=== PATIENT | female | born 1990 | race Caucasian/White ===

== ENCOUNTER 2020-02-19 14:02 | Emergency (ER) | payer OTHER, SELFPAY ==
[2020-02-19 14:08] VITALS: BMI 39.6
[2020-02-19 14:12] VITALS: BP 153/80; PULSE 74; RESP 16; TEMP 37.2; O2SAT 98
--- NOTE | 2020-02-19 14:18 | ED_ITS ---
HPI - Abdominal Pain General: Chief Complaint: Abdominal Pain Stated Complaint: abd pain Time Seen by Provider: 02/19/20 14:18 Source: patient Mode of arrival: ambulatory Limitations: no limitations History of Present Illness: HPI narrative: Patient comes in today with complaints of left flank pain for the last 3 days. Patient denies any injury or straining to move any objects. Patient denies any increase activity. Patient denies any fever nausea or vomiting. Patient appears well. Patient appears in mild pain. MD elicited complaint: flank pain Associated Symptoms: Reports dysuria and nausea Related Data: Date of Last Menstrual Period: 02/13/20 Review of Systems General: Reports: 10 or more systems reviewed and unremarkable except in HPI and below GI: Reports: abdominal pain (Left flank pain) and nausea : Reports: painful urination PFSH ED PFSH: Social History Smoking and tobacco status: never smoked Female Reproductive History: Date of last menstrual period: 02/13/20 Physical Exam Const: COMMON NORMALS: no apparent distress and oriented x3 GENERAL APPEARANCE: cooperative HENMT: COMMON NORMALS: normocephalic, TM's normal bilaterally and external nose normal HEAD & SCALP: normal to inspection and normocephalic NOSE: external nose normal TYMPANIC MEMBRANE: TM's normal bilaterally MOUTH: oral and palatal mucosa normal THROAT: posterior oropharynx normal Eye: GENERAL EYE: normal appearance of both eyes Neck/C-Spine: COMMON NORMALS: full ROM Lymph: LYMPHATIC: no lymphadenopathy noted Chest: COMMONS NORMALS: inspection of chest normal Resp: COMMON NORMALS: normal respiratory effort EFFORT & INSPECTION: Yes able to speak in complete sentences Cardio: COMMON NORMALS: regular rate and regular rhythm RATE: regular rate RHYTHM: regular rhythm GI: PALPATION: Yes tender (Tenderness left upper quadrant on palpation.) : COMMON NORMALS: Yes no CVA tenderness BLADDER/KIDNEY EXAM: Yes no CVA tenderness Back/Pelvis: COMMON NORMALS: no CVA tenderness and thoracic and lumbar spine normal to inspection Extremity: COMMON NORMALS: normal to inspection Neuro: COMMON NORMALS: oriented x3 and moves all extremities Psych: COMMON NORMALS: mental status grossly normal and cooperative Skin: COMMON NORMALS: no rashes or lesions noted GENERAL SKIN EXAM: no rashes or lesions noted Course Vital Signs: Vital signs: Vital Signs Temperature 99.0 F 02/19/20 14:12 Pulse Rate 61 02/19/20 15:13 Respiratory Rate 16 02/19/20 15:13 Blood Pressure 128/76 02/19/20 15:13 Pulse Oximetry 92 02/19/20 15:13 MDM - Abdominal Pain MDM Narrative: Medical decision making narrative: Patient comes into the ER for persistent left upper quadrant abdominal pain. On exam patient has no CVA tenderness. Patient has palpable tenderness to the left upper quadrant deep. Abdomen is soft otherwise. Bowel sounds are normal. Skin is warm and dry. Vital signs are normal except for some mild elevation of blood pressure. Differential diagnosis includes gastritis, constipation, renal calculi, pyelonephritis. CBC and CMP were normal. Urinalysis noted some white and red blood cells in the urine. CT scan of the abdomen and pelvis noted some hydronephrosis on the left ureter with renal calculi bilateral kidneys. Reviewed with patient with recommendations for treatment for renal calculi. Suspect recently passed renal stone we will treat empirically for secondary infection due to the white blood cells in the urine. We will arrange with case management for referral to Dr. Carter for further evaluation and treatment. Patient reports understanding agreed to plan. Lab Data: Labs: Lab Results 02/19/20 02/19/20 02/19/20 Range/Units 14:20 14:30 14:30 WBC 8.7 (4.0-10.0) 10^3/ uL RBC 4.84 (4.1-5.3) 10^6/u L Hgb 14.1 (11.5-15.3) g/dL Hct 44.4 (37.0-47.0) % MCV 91.7 (81-99) fL MCH 29.1 (28.0-34.0) pg MCHC 31.8 (30.0-36.0) g/dL RDW 12.3 (12.1-15.1) % Plt Count 290 (130-400) 10^3/c mm MPV 10.7 H (7.4-10.4) fL Neut % (Auto) 61.6 % Lymph % (Auto) 26.4 % [place] % (Auto) 6.5 % Eos % (Auto) 5.0 % Baso % (Auto) 0.3 % Neut # (Auto) 5.4 (1.8-7.7) 10^3/u L Lymph # (Auto) 2.3 (0.8-4.8) 10^3/u L [place] # (Auto) 0.6 (0.2-0.9) 10^3/u L Eos # (Auto) 0.4 (0.0-0.8) 10^3/u L Baso # (Auto) 0.0 (0.0-0.1) 10^3/u L Nucleated RBC % (a uto) 0 % Nucleated RBCs # 0.0 /100WBC Sodium 143 (136-145) mmol/L Potassium 4.2 (3.5-5.1) mmol/L Chloride 104 (98-107) mmol/L Carbon Dioxide 27 (22-29) mmol/L Anion Gap 16.2 (5-19) BUN 14 (6-20) mg/dL Creatinine 0.8 (0.5-0.9) mg/dL GFR Calculation 83.7 L (90-130) mL/min Glucose 87 (65-115) mg/dL Calculated Osmolal ity 292 (285-295) mOsm/k g Calcium 9.8 (8.5-10.5) mg/dL Total Bilirubin 0.3 (0.15-1.2) mg/dL AST 20 (0-32) U/L ALT 23 (0-33) U/L Alkaline Phosphata se 75 (35-105) IU/L Total Protein 7.9 (6.6-8.7) g/dL Albumin 4.8 (3.5-5.2) g/dL Globulin 3.1 (1.3-4.6) g/dL HCG, Qual (Negative) Urine Color Yellow (Yellow) Urine Appearance Clear (CLEAR) Urine pH 6.5 (5-7) Ur Specific Gravit y 1.015 (1.005-1.030) Urine Protein Neg (Negative) Urine Glucose (UA) Norm (Normal) Urine Ketones Negative (Negative) Urine Blood 2+ H (Negative) Urine Nitrate Negative (Negative) Urine Bilirubin Neg (NEGATIVE) Urine Urobilinogen Norm (Negative) mg/dL Ur Leukocyte Michelle ase Negative (Negative) Urine RBC 10-15 H (0-2) /hpf Urine WBC 15-25 H (0-5) /hpf Ur Squamous Epith Cells 5-10 H (0-5) Urine Bacteria 1+ H (NONE) Urine Mucus Trace 02/19/20 Range/Units 14:30 WBC (4.0-10.0) 10^3/ uL RBC (4.1-5.3) 10^6/u L Hgb (11.5-15.3) g/dL Hct (37.0-47.0) % MCV (81-99) fL MCH (28.0-34.0) pg MCHC (30.0-36.0) g/dL RDW (12.1-15.1) % Plt Count (130-400) 10^3/c mm MPV (7.4-10.4) fL Neut % (Auto) % Lymph % (Auto) % [place] % (Auto) % Eos % (Auto) % Baso % (Auto) % Neut # (Auto) (1.8-7.7) 10^3/u L Lymph # (Auto) (0.8-4.8) 10^3/u L [place] # (Auto) (0.2-0.9) 10^3/u L Eos # (Auto) (0.0-0.8) 10^3/u L Baso # (Auto) (0.0-0.1) 10^3/u L Nucleated RBC % (a uto) % Nucleated RBCs # /100WBC Sodium (136-145) mmol/L Potassium (3.5-5.1) mmol/L Chloride (98-107) mmol/L Carbon Dioxide (22-29) mmol/L Anion Gap (5-19) BUN (6-20) mg/dL Creatinine (0.5-0.9) mg/dL GFR Calculation (90-130) mL/min Glucose (65-115) mg/dL Calculated Osmolal ity (285-295) mOsm/k g Calcium (8.5-10.5) mg/dL Total Bilirubin (0.15-1.2) mg/dL AST (0-32) U/L ALT (0-33) U/L Alkaline Phosphata se (35-105) IU/L Total Protein (6.6-8.7) g/dL Albumin (3.5-5.2) g/dL Globulin (1.3-4.6) g/dL HCG, Qual Negative (Negative) Urine Color (Yellow) Urine Appearance (CLEAR) Urine pH (5-7) Ur Specific Gravit y (1.005-1.030) Urine Protein (Negative) Urine Glucose (UA) (Normal) Urine Ketones (Negative) Urine Blood (Negative) Urine Nitrate (Negative) Urine Bilirubin (NEGATIVE) Urine Urobilinogen (Negative) mg/dL Ur Leukocyte Michelle ase (Negative) Urine RBC (0-2) /hpf Urine WBC (0-5) /hpf Ur Squamous Epith Cells (0-5) Urine Bacteria (NONE) Urine Mucus Discharge Plan Discharge Patient Disposition: Home, Self-Care Clinical Impression: Calculus, renal UTI (urinary tract infection) Qualifiers: Urinary tract infection type: site unspecified Hematuria presence: with hematuria Qualified Code(s): N39.0 - Urinary tract infection, site not specified Condition: Stable Prescriptions: New cephalexin 500 mg capsule 500 mg PO BID 7 Days Qty: 14 RF: 0 hydrocodone-acetaminophen 5-325 mg tablet 1 tab PO Q6H PRN (Reason: pain) Qty: 7 RF: 0 ondansetron HCl 4 mg tablet 4 mg PO Q8H PRN (Reason: nausea and vomiting) Qty: 7 RF: 0 No Action Zyrtec 10 mg Capsule 10 mg PO DAILY RF: 0 Discharge Orders: Discharge Order (Routine); Ordered 02/19/20 Ordered By: Charlie Mckenna Referrals: Caleb Joseph MD [Primary Care Provider] - Discharge Diet: Usual diet Discharge Activity: Increase activity as tolerated Patient Instructions: Renal Colic (ED) Activity Restrictions/Additional Instructions: Drink plenty of water. Take antibiotics as directed. Use acetaminophen or ibuprofen as needed for control of pain. Use hydrocodone for severe pain. Follow-up with urology for further evaluation and treatment. Return to the ER for high fever or uncontrolled symptoms. Coding Level of Care Code ED Teletypewriter Operator for Dkg Fwd Exam Comprehensive
--- NOTE | 2020-02-19 14:25 | CTR_ITS ---
PROCEDURE INFORMATION: Exam: CT Abdomen And Pelvis Without Contrast Exam date and time: 02/19/2020 2:59 PM Age: 29 years old Clinical indication: Abdominal pain; Flank; Left; Additional info: Left flank pain, TECHNIQUE: Imaging protocol: Computed tomography of the abdomen and pelvis without contrast. Radiation optimization: All CT scans at this facility use at least one of these dose optimization techniques: automated exposure control; mA and/or kV adjustment per patient size (includes targeted exams where dose is matched to clinical indication); or iterative reconstruction. COMPARISON: US OB >14 Weeks [id number] 07/23/2017 2:49 PM RADIATION DOSE METRICS: Total DLP: 2042.6 mGy-cm FINDINGS: Liver: Normal. No mass. Gallbladder and bile ducts: The gallbladder is surgically absent, with metallic clips in the gallbladder fossa. Pancreas: Normal. No ductal dilation. Spleen: Normal. No splenomegaly. Adrenals: Normal. No mass. Kidneys and ureters: The left kidney shows mild pelviectasis and borderline abdominal ureterectasis with mild renal pelvic an ureteral wall thickening. Left renal calculi (3), the largest in the lateral mid kidney measuring 3.3 mm. Right renal calculi (2), the largest in the posterior mid kidney measuring 2.2 mm. Stomach and bowel: Unremarkable. No obstruction. No mucosal thickening. Appendix: The vermiform appendix is normal. Intraperitoneal space: Unremarkable. No free air. No significant fluid collection. Vasculature: Unremarkable. No abdominal aortic aneurysm. Lymph nodes: No enlarged lymph nodes. Bladder: Unremarkable as visualized. Reproductive: Unremarkable as visualized. Bones/joints: Unremarkable. No acute fracture. Soft tissues: Unremarkable. CT/CT kidney stone [id number] IMPRESSION: 1. Mild left hydronephrosis, borderline left hydroureter. No obstructing calculus identified. Differential diagnosis includes recently passed calculi, and non-opaque obstructing material (hemorrhage, purulence, nonopaque calculus). Clinical correlation (including urinalysis) is recommended. 2. Bilateral renal calyceal lithiasis. 3. Prior cholecystectomy. Radiation Dose CTDIVOL = (mGy): DLP = 2042.6 (mGy-cm)
[2020-02-19 14:46] LABS: Basophils % 0.3 %; Eosinophils # 0.4 10^3/uL (0.0-0.8); Hematocrit 44.4 % (37.0-47.0); Hemoglobin 14.1 g/dL (11.5-15.3); Lymphocytes # 2.3 10^3/uL (0.8-4.8); Lymphocytes % 26.4 %; Mean Corpuscular HGB Conc 31.8 g/dL (30.0-36.0); Mean Corpuscular Hemoglobin 29.1 pg (28.0-34.0); Mean Corpuscular Volume 91.7 fL (81-99); Mean Platelet Volume 10.7 fL (7.4-10.4); Monocytes # 0.6 10^3/uL (0.2-0.9); Monocytes % 6.5 %; Neutrophils # 5.4 10^3/uL (1.8-7.7); Neutrophils % 61.6 %; Nucleated Red Blood Cells % 0 %; Platelet Count 290 10^3/cmm (130-400); Red Blood Count 4.84 10^6/uL (4.1-5.3); Red Cell Distribution Width 12.3 % (12.1-15.1); White Blood Count 8.7 10^3/uL (4.0-10.0)
[2020-02-19] MEDS: sodium chloride 0.9% 500 ML 999 ML IV (14:51)
[2020-02-19] MEDS: ondansetron 2 mg/ML SDV 2 mL 4 MG IVP (14:51)
[2020-02-19] MEDS: ketorolac 30 mg/mL INJ 15 MG IVP (14:51)
[2020-02-19 14:54] LABS: HCG, Serum Qual Negative (Negative)
[2020-02-19 14:55] VITALS: BP 125/69; PULSE 56; RESP 16; O2SAT 96
[2020-02-19 15:03] LABS: Alanine Aminotransferase 23 U/L (0-33); Albumin Level 4.8 g/dL (3.5-5.2); Alkaline Phosphatase 75 IU/L (35-105); Anion Gap 16.2 (5-19); Aspartate Amino Transferase 20 U/L (0-32); Blood Urea Nitrogen 14 mg/dL (6-20); Calcium 9.8 mg/dL (8.5-10.5); Carbon Dioxide 27 mmol/L (22-29); Chloride 104 mmol/L (98-107); Creatinine Clr Calc Pharmacy 107.4187; Globulin 3.1 g/dL (1.3-4.6); Glomerular Filtration Rate 83.7 mL/min (90-130); Glucose 87 mg/dL (65-115); Osmolality Calculated 292 mOsm/kg (285-295); Potassium 4.2 mmol/L (3.5-5.1); Sodium 143 mmol/L (136-145); Total Bilirubin 0.3 mg/dL (0.15-1.2); Total Protein 7.9 g/dL (6.6-8.7)
[2020-02-19 15:13] VITALS: BP 128/76; PULSE 61; RESP 16; O2SAT 92
[2020-02-19 15:13] LABS: Add Urine Microscopic? YES; Bilirubin Urine Neg (NEGATIVE); Blood Urine 2+ (Negative); Glucose Urine UA Norm (Normal); Ketones Urine Negative (Negative); Leukocyte Esterase Urine Negative (Negative); Nitrate Urine Negative (Negative); Protein Urine Neg (Negative); Specific Gravity, Urine 1.015 (1.005-1.030); Urine Appearance Clear (CLEAR); Urine Color Yellow (Yellow); Urobilinogen Urine Norm (Negative); WBC Urine 15-25 /hpf (0-5); pH Urine 6.5 (5-7)
[2020-02-19 15:14] LABS: Add Urine Culture? Yes; Bacteria Urine 1+; Mucus Urine TRACE
[2020-02-19 16:29] VITALS: BP 121/70; PULSE 59; RESP 16; O2SAT 97
--- NOTE | 2020-02-21 12:06 | DCPLANNER ---
wildlife refuge manager had message to schedule a follow up appointment for patient with Dr. Carter. wildlife refuge manager called the office of Dr. Carter, spoke with Grisel, gave clinic patients information. wildlife refuge manager was told that patients information would be printed and given to Jaylene for review. Clinic will call patient with appointment information. wildlife refuge manager will call for appointment information.
--- NOTE | 2020-02-22 13:55 | DCPLANNER ---
Patient has a follow up appointment scheduled for Thursday, March 23, [address] at 3:[address] Carter. Clinic will call patient with appointment information.
--- NOTE | 2020-03-14 08:02 | DCPLANNER ---
Patient attended appointment scheduled for 02.22.[address] Carter.
== END 2020-02-19 16:25 | disposition home or self-care (01) ==
PROVIDERS: Emergency Provider Nurse Practitioner Family; Family Provider Family Medicine; PCP Family Medicine
DX: N20.0 Calculus of kidney (principal); N39.0 Urinary tract infection, site not specified; R31.9 Hematuria, unspecified
CPT/HCPCS: 12345; 36415; 74176; 80053; 81001; 84703; 85025; 87077; 87086; 87186; 96374; 96375; 99282; 99284; A9270; J1885; J2405; J7040

== ENCOUNTER 2020-02-22 13:48 | Outpatient (CLI) | payer OTHER, SELFPAY ==
--- NOTE | 2020-02-22 14:00 | XR_ITS ---
WS: [id number] XR KUB [id number] REASON FOR EXAM: RENAL CALCULI FINDINGS: Calcified densities are seen in the left kidney the largest measures 2.61 mm. There is no obstructive pattern seen. There is nonspecific gas and fecal stasis. The ureters and bladder appear to be normal. XR/XR KUB [id number] IMPRESSION: Left renal calculus.
== END 2020-02-22 13:49 | disposition home or self-care (01) ==
LOC: RAD 13:49
PROVIDERS: PCP Family Medicine; Visit Provider Urology
DX: N20.0 Calculus of kidney (principal); N39.0 Urinary tract infection, site not specified; R31.9 Hematuria, unspecified
CPT/HCPCS: 74018; 81001

== ENCOUNTER 2020-03-19 13:22 | Outpatient (CLI) | payer OTHER, SELFPAY ==
--- NOTE | 2020-03-19 13:00 | XR_ITS ---
WS: [id number] XR KUB [id number] REASON FOR EXAM: abd pain FINDINGS: Scattered gas and fecal stasis is noted. Small stones are again seen in the lower pole of t he left kidney. These are unchanged since February 22, 2020. There is no stones in the region of the ureter bladder. XR/XR KUB [id number] IMPRESSION: Small stones identified again in the left kidney.
== END 2020-03-19 13:23 | disposition home or self-care (01) ==
LOC: RAD 13:25
PROVIDERS: PCP Family Medicine; Visit Provider Nurse Practitioner Family
DX: R10.9 Unspecified abdominal pain (principal); N20.0 Calculus of kidney
CPT/HCPCS: 74018; 81001

== ENCOUNTER → 2020-04-04 09:14 | Outpatient (BNVA) | payer OTHER, SELFPAY | PROVIDERS: PCP Family Medicine; Visit Provider Urology | DX: N39.0 Urinary tract infection, site not specified (principal); R10.812 Left upper quadrant abdominal tenderness | CPT/HCPCS: 81001 ==

== ENCOUNTER → 2022-10-23 15:22 | Outpatient (BNVA) | payer OTHER, SELFPAY | PROVIDERS: PCP Family Medicine; Visit Provider Family Medicine | DX: E03.9 Hypothyroidism, unspecified (principal); N39.0 Urinary tract infection, site not specified; R10.812 Left upper quadrant abdominal tenderness | CPT/HCPCS: 84436; 84443 ==

== ENCOUNTER → 2022-12-26 09:32 | Outpatient (BNVA) | payer OTHER, SELFPAY | PROVIDERS: PCP Family Medicine; Visit Provider Family Medicine | DX: Z13.220 Encounter for screening for lipoid disorders (principal); E03.9 Hypothyroidism, unspecified; Z51.81 Encounter for therapeutic drug level monitoring | CPT/HCPCS: 80053; 80061; 84439; 84443; 85025 ==

== ENCOUNTER → 2023-01-02 08:30 | Outpatient (BNVA) | payer OTHER, SELFPAY | PROVIDERS: PCP Family Medicine; Visit Provider Podiatrist Foot & Ankle Surgery | DX: M76.62 Achilles tendinitis, left leg (principal); M72.2 Plantar fascial fibromatosis; M24.572 Contracture, left ankle | CPT/HCPCS: 73630 ==

== ENCOUNTER 2023-01-26 15:43 | Outpatient (CLI) | payer OTHER, SELFPAY | END 2023-01-26 15:44 | disposition home or self-care (01) | LOC: SPT 15:43 | PROVIDERS: PCP Family Medicine; Visit Provider Podiatrist Foot & Ankle Surgery | DX: Z46.89 Encounter for fitting and adjustment of other specified devices (principal); M72.2 Plantar fascial fibromatosis | CPT/HCPCS: 97760; L4397 ==

== ENCOUNTER → 2023-02-09 15:46 | Outpatient (BNVA) | payer OTHER, SELFPAY | PROVIDERS: PCP Family Medicine; Visit Provider Family Medicine | DX: E03.9 Hypothyroidism, unspecified (principal); L50.9 Urticaria, unspecified; R63.5 Abnormal weight gain | CPT/HCPCS: 82533; 84439; 84443; 86376 ==

== ENCOUNTER → 2023-02-25 08:28 | Outpatient (BNVA) | payer OTHER, SELFPAY | PROVIDERS: PCP Family Medicine; Visit Provider Family Medicine | DX: E03.9 Hypothyroidism, unspecified (principal) | CPT/HCPCS: 82533 ==

== ENCOUNTER → 2023-04-06 13:26 | Outpatient (BNVA) | payer OTHER, SELFPAY | PROVIDERS: PCP Family Medicine; Visit Provider Internal Medicine | DX: E03.9 Hypothyroidism, unspecified (principal); L50.9 Urticaria, unspecified; R63.5 Abnormal weight gain; Z79.890 Hormone replacement therapy; Z68.41 Body mass index [BMI] 40.0-44.9, adult | CPT/HCPCS: 99214 ==

== ENCOUNTER → 2023-05-15 12:33 | Outpatient (BNVA) | payer OTHER, SELFPAY | PROVIDERS: PCP Family Medicine; Visit Provider Family Medicine | DX: E03.9 Hypothyroidism, unspecified (principal) | CPT/HCPCS: 84439; 84443 ==

== ENCOUNTER → 2023-05-19 10:00 | Outpatient (BNVA) | payer OTHER, SELFPAY | PROVIDERS: PCP Family Medicine; Visit Provider Nurse Practitioner Women's Health | DX: Z01.419 Encounter for gynecological examination (general) (routine) without abnormal findings (principal) | CPT/HCPCS: 87624 ==

== ENCOUNTER → 2023-05-28 14:56 | Outpatient (BNVA) | payer OTHER, SELFPAY | PROVIDERS: PCP Family Medicine; Visit Provider Nurse Practitioner Women's Health | DX: N92.0 Excessive and frequent menstruation with regular cycle (principal) | CPT/HCPCS: 76830 ==

== ENCOUNTER → 2023-06-15 13:23 | Outpatient (BNVA) | payer OTHER, SELFPAY | PROVIDERS: PCP Family Medicine; Visit Provider Internal Medicine | DX: E03.9 Hypothyroidism, unspecified (principal); L50.9 Urticaria, unspecified; R63.5 Abnormal weight gain; Z79.890 Hormone replacement therapy; Z68.41 Body mass index [BMI] 40.0-44.9, adult | CPT/HCPCS: 99214 ==

== ENCOUNTER → 2023-08-24 15:36 | Outpatient (BNVA) | payer OTHER, SELFPAY | PROVIDERS: PCP Family Medicine; Visit Provider Obstetrics & Gynecology | DX: N93.9 Abnormal uterine and vaginal bleeding, unspecified (principal) | CPT/HCPCS: 83001; 84146; 84443; 84702; 85025 ==

== ENCOUNTER → 2024-03-11 12:30 | Outpatient (BNVA) | payer OTHER, SELFPAY | PROVIDERS: PCP Family Medicine; Visit Provider Family Medicine | DX: E03.9 Hypothyroidism, unspecified (principal) | CPT/HCPCS: 84439; 84443 ==

== ENCOUNTER → 2024-05-26 10:40 | Outpatient (BNVA) | payer OTHER, SELFPAY | PROVIDERS: PCP Family Medicine; Visit Provider Family Medicine | DX: E03.9 Hypothyroidism, unspecified (principal) | CPT/HCPCS: 84439; 84443 ==

== ENCOUNTER → 2024-11-22 15:30 | Outpatient (BNVA) | payer OTHER, SELFPAY | PROVIDERS: PCP Family Medicine; Visit Provider Family Medicine | DX: Z13.1 Encounter for screening for diabetes mellitus (principal); Z51.81 Encounter for therapeutic drug level monitoring | CPT/HCPCS: 80053; 83036; 85025 ==

== ENCOUNTER → 2024-11-28 10:10 | Outpatient (BNVA) | payer OTHER, SELFPAY | PROVIDERS: PCP Family Medicine; Visit Provider Family Medicine | DX: R10.9 Unspecified abdominal pain (principal); Z51.81 Encounter for therapeutic drug level monitoring | CPT/HCPCS: 80053; 83690; 85025; 86141 ==